=== PATIENT | male | born 1965 | race Caucasian/White ===

== ENCOUNTER → 2017-03-12 | Outpatient (CLI) | payer OTHER ==
[2017-03-12 13:49] LABS: ESTIMATED AVERAGE GLUCOSE 137 mg/dl; HA1C FLAG Normal (Normal)
== END | disposition home or self-care (01) ==
LOC: C.LABBC 10:53
PROVIDERS: ATTEND Nurse Practitioner Family
DX: E11.9 Type 2 diabetes mellitus without complications (principal)

== ENCOUNTER → 2017-06-24 | Outpatient (CLI) | payer OTHER ==
[2017-06-24 11:20] LABS: ESTIMATED AVERAGE GLUCOSE 134 mg/dl; HA1C FLAG Normal (Normal)
[2017-06-24 11:23] LABS: ALB/GLOB RATIO 1.3 (0.9-2); ALKALINE PHOSPHATASE 88 U/L (45-117); ALT/SGPT 42 U/L (12-78); AMYLASE 85 U/L (25-115); AST/SGOT 17 U/L (15-37); BLOOD UREA NITROGEN 18 mg/dl (7-18); BUN/CREATININE RATIO 16.9 (10-20); CALCIUM 8.6 mg/dl (8.5-10.1); CARBON DIOXIDE 30 mmol/L (21-32); CHLORIDE 104 mmol/L (98-107); CREATININE 1.08 mg/dl (0.60-1.40); GLUCOSE 132 mg/dl (70-99); HDL CHOLESTEROL 42 mg/dl; SODIUM 139 mmol/L (136-145)
[2017-06-24 11:25] LABS: CHOLESTEROL 183 mg/dl (0-200); CHOLESTEROL/HDL RATIO 4.4; LDL CHOLESTEROL CALCULATED 108 mg/dl; TRIGLYCERIDES 164 mg/dl (0-150); VERY LOW DENSITY LIPOPROT CALC 33 mg/dl
[2017-06-24 11:35] LABS: RATIO 3.5 mcg/mg (0-30.0)
== END | disposition home or self-care (01) ==
LOC: C.LABBC 08:31
PROVIDERS: ATTEND Nurse Practitioner Family
DX: E11.9 Type 2 diabetes mellitus without complications (principal); M54.5 Low back pain

== ENCOUNTER → 2017-09-24 | Outpatient (CLI) | payer OTHER ==
[2017-09-24 14:07] LABS: HEMOGLOBIN A1C 6.3 % (4.5-5.6)
[2017-09-24 14:17] LABS: LIPASE 170 U/L (73-393)
== END | disposition home or self-care (01) ==
LOC: C.LABBC 10:49
PROVIDERS: ATTEND Nurse Practitioner Family
DX: E11.9 Type 2 diabetes mellitus without complications (principal)

== ENCOUNTER 2021-04-20 00:33 | Inpatient (IN) ==
[2021-04-20] MEDS ORDERED: dexAMETHasone**PF** 10 MG/ML VIAL IV ONE (00:42)
[2021-04-20] MEDS ORDERED: SODIUM CHLORIDE 0.9% 1000ML 1,000 ML IV SCH (00:45)
--- NOTE | 2021-04-20 01:00 | Emergency Department Note ---
History of Present Illness General Chief complaint: Shortness of Breath/Dyspnea Stated complaint: + COVID w/ BREATHING DIFFICULTY Time Seen by Provider: 04/20/21 00:35 History of Present Illness This 55-year-old unvaccinated male who tested positive for Covid presents to the ER complaining of worsening shortness of breath whose sats at home were 88 to 90% Location: Generalized Quality: Hard to breathe Severity: Moderate Duration: Past 2 days Timing: Started few days ago Context: Symptoms got worse and patient came in Modifying factors: better with nothing; worse with activity Patient took a home Covid test the other day and was positive. is currently sick with Covid also. Patient states he feels sick and short of breath. He does not smoke. Home O2 sats were low. Patient was concerned and came in. Home Medications Medication Instructions Recorded Confirmed Type ascorbic acid (vitamin C) 250 mg 250 mg PO DAILY tab 04/14/19 04/20/21 History tablet cholecalciferol (vitamin D3) 50 2,000 units PO DAILY tab 04/14/19 04/20/21 History mcg (2,000 unit) tablet cyanocobalamin (vitamin B-12) 500 500 mcg PO DAILY tab 04/14/19 04/20/21 History mcg tablet multivitamin 1 tab PO DAILY 04/14/19 04/20/21 History omega-3 acid ethyl esters 1 gram 1 cap PO DAILY cap 04/14/19 04/20/21 History capsule blood sugar diagnostic (Kulv Travel AgencyTouch #300 ea 02/17/20 Rx Ultra Blue Test Strip) FreeStyle Zan 14 Day [place] #1 ea NS 04/27/20 09/14/20 Rx (flash glucose scanning reader) FreeStyle Zan 14 Day Sensor #6 ea NS 04/27/20 09/14/20 Rx (flash glucose sensor) insulin degludec 200 unit/mL (3 26 unit SUBCUT DAILY 90 Days #18 ml 05/04/20 04/20/21 Rx mL) subcutaneous pen (Tresiba FlexTouch U-200 insulin) lancets 33 gauge (Kulv Travel AgencyTouch Delica #300 ea 05/04/20 Rx Lancets) metformin 500 mg tablet,extended 1,500 mg PO DAILY #270 tab 02/19/21 04/20/21 Rx release 24 hr pen needle, diabetic 32 gauge x #100 ea 03/15/21 Rx 5/32" (BD Ultra-Fine Gisell Pen Needle) acetaminophen 300 mg-codeine 30 mg 1 tab PO Q6 PRN 04/20/21 04/20/21 History tablet albuterol sulfate 90 mcg/actuation 2 puff INHALATION Q6 04/20/21 04/20/21 History aerosol inhaler fluticasone 100 mcg-salmeterol 50 1 ea INHALATION BID 04/20/21 04/20/21 History mcg/dose blistr powdr for inhalation (Advair Diskus) promethazine 6.25 mg-codeine 10 0 ml PO UD 04/20/21 04/20/21 History mg/5 mL syrup Allergies Allergy/AdvReac Type Severity Reaction Status Date / Time No Known Allergies Allergy Verified 04/20/21 00:58 Past Med/Surg History Medical History (Updated 04/20/21 @ 03:03 by Melody Winston DO) Dyslipidemia Type 2 diabetes mellitus with insulin therapy Surgical History No pertinent past surgical history Family History (Updated 04/20/21 @ 02:52 by Melody Winston DO) Other No significant family history Social History Smoking Status: Never smoker Hx Alcohol Use: No Preferred Language: Wolof Feels Safe at Home: Yes Review of Systems A total of 10 systems reviewed and were otherwise negative Physical Exam Vital Signs Vital Signs - 24 hr 04/20/21 00:45 04/20/21 00:50 04/20/21 01:12 Temperature 38.6 C H Temperature Source Oral Pulse Rate 110 H Pulse Rate [Apical] Pulse Rhythm Regular Pulse Rhythm [Apical] Pulse Strength [Apical] Respiratory Rate 24 Respiratory Effort / Characteristics Non-Labored Respiratory Depth Normal Respiratory Pattern Regular Blood Pressure 152/98 H Blood Pressure [Left Arm] Blood Pressure Mean 116 Blood Pressure Mean [Left Arm] Blood Pressure Position [Left Arm] Pulse Oximetry 89 L 94 Oxygen Delivery Method Room Air Nasal Cannula Nasal Cannula Oxygen Flow Rate 3 Sepsis Recent Fever Within 48 Hours No Sepsis New/Unexplained Change in Mental Status No Sepsis Action Taken by Nursing Physician Notified 04/20/21 01:15 04/20/21 01:16 04/20/21 01:30 Temperature Temperature Source Pulse Rate Pulse Rate [Apical] 108 H Pulse Rhythm Pulse Rhythm [Apical] Regular Pulse Strength [Apical] Normal Respiratory Rate 24 Respiratory Effort / Characteristics Non-Labored Spontaneous Non-Labored Spontaneous Non-Labored Spontaneous Respiratory Depth Normal Respiratory Pattern Blood Pressure Blood Pressure [Left Arm] 161/94 H Blood Pressure Mean Blood Pressure Mean [Left Arm] 116 Blood Pressure Position [Left Arm] Lying Pulse Oximetry 95 95 97 Oxygen Delivery Method Nasal Cannula Nasal Cannula Room Air Oxygen Flow Rate 3 3 Sepsis Recent Fever Within 48 Hours Sepsis New/Unexplained Change in Mental Status Sepsis Action Taken by Nursing 04/20/21 02:00 04/20/21 02:30 04/20/21 02:45 Temperature Temperature Source Pulse Rate Pulse Rate [Apical] 101 H 102 H 101 H Pulse Rhythm Pulse Rhythm [Apical] Regular Regular Pulse Strength [Apical] Normal Normal Respiratory Rate 22 22 22 Respiratory Effort / Characteristics Non-Labored Spontaneous Non-Labored Spontaneous Non-Labored Accessory Muscle Use Respiratory Depth Normal Normal Normal Respiratory Pattern Regular Blood Pressure Blood Pressure [Left Arm] 166/86 H 160/64 H 142/101 H Blood Pressure Mean Blood Pressure Mean [Left Arm] 112 96 114 Blood Pressure Position [Left Arm] Pulse Oximetry 96 95 95 Oxygen Delivery Method Nasal Cannula Nasal Cannula Nasal Cannula Oxygen Flow Rate 3 3 3 Sepsis Recent Fever Within 48 Hours Sepsis New/Unexplained Change in Mental Status Sepsis Action Taken by Nursing 04/20/21 03:11 Temperature Temperature Source Pulse Rate 101 H Pulse Rate [Apical] Pulse Rhythm Pulse Rhythm [Apical] Pulse Strength [Apical] Respiratory Rate 22 Respiratory Effort / Characteristics Respiratory Depth Respiratory Pattern Blood Pressure 161/96 H Blood Pressure [Left Arm] Blood Pressure Mean Blood Pressure Mean [Left Arm] Blood Pressure Position [Left Arm] Pulse Oximetry 95 Oxygen Delivery Method Nasal Cannula Oxygen Flow Rate 3 Sepsis Recent Fever Within 48 Hours Sepsis New/Unexplained Change in Mental Status Sepsis Action Taken by Nursing VITALS: Vitals are noted on the nurse's note and reviewed by myself. Vital signs 88% on room air. GENERAL: White male appears sick working to breathe, SKIN: The skin was without rashes, erythema, edema, or bruising. There is no tenting of the skin. Capillary reflex less than 2 seconds. HEAD: Normocephalic atraumatic. EARS: External auditory canals clear, tympanic membranes pearly lemon without erythema or effusion bilaterally. EYES: Pupils equal round and reactive to light and accommodation. Conjunctivae without injection, sclerae without icterus. Extraocular movements intact. NOSE: Patent, turbinates without inflammation or discharge. No sinus tenderness. MOUTH: Mucous membranes moist. Pharynx without erythema or exudate. Uvula midline. Airway patent. Tongue does not deviate. NECK: Supple without nuchal rigidity. No lymphadenopathy. No thyromegaly. Cervical spine is nontender. No JVD. HEART: Regular rate and rhythm LUNGS: Mild diffuse end expiratory wheezes, without rales or rhonchi. No retractions or accessory muscle use. ABDOMEN: Positive bowel sounds x 4. Normal tympanic percussion. Soft, nontender, without masses or organomegaly. Henry sign negative. No guarding or rebound tenderness. No CVA tenderness MUSCULOSKELETAL: No muscle atrophy, erythema, or edema noted. NEURO: Patient was alert and oriented to person place and time. Normal sensation to light and sharp touch. No focal neurological deficits. Course Administered Medications Discontinued Medications Dexamethasone Sodium Phosphate (DexamethasonePf 10 Mg/Ml Vial) 6 mg IV NOW ONE Stop: 04/20/21 00:43 Last Admin: 04/20/21 01:12 Dose: 6 mg Documented by: [id number] Sodium Chloride (Nss 1000ml) 1,000 mls @ 999 mls/hr IV .[id number] PATRICIA Stop: 04/20/21 01:45 Last Infusion: 04/20/21 02:27 Dose: 0 mls/hr Documented by: [id number] Admin: 04/20/21 01:13 Dose: 999 mls/hr Documented by: [id number] Potassium Chloride (Potassium Chloride Crtab 20 Meq Tabcr) 40 meq PO NOW STA Stop: 04/20/21 02:44 Last Admin: 04/20/21 02:52 Dose: 40 meq Documented by: [id number] Medical Decision Making Medical Records Attestation: I reviewed the patient's medical records. Home Medications Current Medication List: was personally reviewed by me Laboratory Data Attestation: I reviewed the patient's lab results. Result diagrams: 04/20/21 01:10 04/20/21 01:10 Lab Results 04/20/21 04/20/21 04/20/21 Range/Units 01:10 01:10 01:10 WBC 3.09 L (4.8-10.8) K/uL RBC 5.09 (4.7-6.1) M/uL Hgb 14.9 (14.0-18.0) g/dL Hct 42.0 (42-52) % MCV 82.5 (80-100) fL MCH 29.3 (25-34) pg MCHC 35.5 (32-36) g/dL RDW Std Deviation 38.6 (36.4-46.3) fL RDW Coeff of Miracle 12.7 (11.5-14.5) % Plt Count 129 L (130-400) K/uL MPV 9.5 (7.4-10.4) fL Immature Gran % (Auto) 0.3 % Neut % (Auto) 74.2 % Lymph % (Auto) 19.4 % [place] % (Auto) 6.1 % Eos % (Auto) 0.0 % Baso % (Auto) 0.0 % Neut # (Auto) 2.29 (1.4-6.5) K/uL Lymph # (Auto) 0.60 L (1.2-3.4) K/uL [place] # (Auto) 0.19 (0.11-0.59) K/uL Eos # (Auto) 0.00 (0-0.5) K/uL Baso # (Auto) 0.00 (0-0.2) K/uL Immature Gran # (Auto) 0.01 (0.00-0.02) K/uL RBC Morphology Unremarkable PT 10.8 (9.0-12.0) Seconds INR 1.1 (0.9-1.1) APTT 29.2 (21.0-31.0) Seconds PTT Ratio 1.1 Sodium 127 L (136-145) mmol/L Potassium 3.2 L (3.5-5.1) mmol/L Chloride 93 L (98-107) mmol/L Carbon Dioxide 27 (21-32) mmol/L Anion Gap 7.0 (3-11) BUN 11 (7-18) mg/dl Creatinine 0.97 (0.6-1.4) mg/dl Est Cr Clr Drug Dosing 98.6 ml/min Est GFR ( Amer) 102.2 ml/min Est GFR (Non-Af Amer) 88.1 ml/min BUN/Creatinine Ratio 11.2 (10-20) Glucose 145 H (70-99) mg/dl Lactate (0.4-2.0) mmol/L Calcium 7.9 L (8.5-10.1) mg/dl Magnesium 2.0 (1.8-2.4) mg/dl Total Bilirubin 0.9 (0.2-1) mg/dl AST 68 H (15-37) U/L ALT 47 (12-78) U/L Alkaline Phosphatase 63 (45-117) U/L Troponin I < 0.015 (0-0.045) ng/ml C-Reactive Protein 5.51 H (0-0.29) mg/dl NT-Pro-B Natriuret Pep 46 (0-900) pg/ml Total Protein 6.4 (6.4-8.2) gm/dl Albumin 3.3 L (3.4-5.0) gm/dl Globulin 3.1 (2.5-4.0) gm/dl Albumin/Globulin Ratio 1.1 (0.9-2) Procalcitonin (0-0.5) ng/ml Urine Color Urine Appearance (Clear) Urine pH (4.5-7.5) Ur Specific [place] (1.000-1.030) Urine Protein (Negative) Urine Glucose (UA) (Negative) Urine Ketones (Negative) Urine Blood (Negative) Urine Nitrite (Negative) Urine Bilirubin (Negative) Urine Urobilinogen (Negative) Ur Leukocyte Esterase (Negative) Urine WBC (Auto) (0-5) /hpf Urine RBC (Auto) (0-4) /hpf U Hyaline Cast (Auto) (0-5) /lpf U Epithel Cells (Auto) (0-5) /lpf Urine Bacteria (Auto) (Negative) COVID-19 Eval Order SARS-CoV-2 (PCR) (Negative) 04/20/21 04/20/21 04/20/21 Range/Units 01:10 01:10 01:10 WBC (4.8-10.8) K/uL RBC (4.7-6.1) M/uL Hgb (14.0-18.0) g/dL Hct (42-52) % MCV (80-100) fL MCH (25-34) pg MCHC (32-36) g/dL RDW Std Deviation (36.4-46.3) fL RDW Coeff of Miracle (11.5-14.5) % Plt Count (130-400) K/uL MPV (7.4-10.4) fL Immature Gran % (Auto) % Neut % (Auto) % Lymph % (Auto) % [place] % (Auto) % Eos % (Auto) % Baso % (Auto) % Neut # (Auto) (1.4-6.5) K/uL Lymph # (Auto) (1.2-3.4) K/uL [place] # (Auto) (0.11-0.59) K/uL Eos # (Auto) (0-0.5) K/uL Baso # (Auto) (0-0.2) K/uL Immature Gran # (Auto) (0.00-0.02) K/uL RBC Morphology PT (9.0-12.0) Seconds INR (0.9-1.1) APTT (21.0-31.0) Seconds PTT Ratio Sodium (136-145) mmol/L Potassium (3.5-5.1) mmol/L Chloride (98-107) mmol/L Carbon Dioxide (21-32) mmol/L Anion Gap (3-11) BUN (7-18) mg/dl Creatinine (0.6-1.4) mg/dl Est Cr Clr Drug Dosing ml/min Est GFR ( Amer) ml/min Est GFR (Non-Af Amer) ml/min BUN/Creatinine Ratio (10-20) Glucose (70-99) mg/dl Lactate 1.2 (0.4-2.0) mmol/L Calcium (8.5-10.1) mg/dl Magnesium (1.8-2.4) mg/dl Total Bilirubin (0.2-1) mg/dl AST (15-37) U/L ALT (12-78) U/L Alkaline Phosphatase (45-117) U/L Troponin I (0-0.045) ng/ml C-Reactive Protein (0-0.29) mg/dl NT-Pro-B Natriuret Pep (0-900) pg/ml Total Protein (6.4-8.2) gm/dl Albumin (3.4-5.0) gm/dl Globulin (2.5-4.0) gm/dl Albumin/Globulin Ratio (0.9-2) Procalcitonin 0.07 (0-0.5) ng/ml Urine Color Urine Appearance (Clear) Urine pH (4.5-7.5) Ur Specific [place] (1.000-1.030) Urine Protein (Negative) Urine Glucose (UA) (Negative) Urine Ketones (Negative) Urine Blood (Negative) Urine Nitrite (Negative) Urine Bilirubin (Negative) Urine Urobilinogen (Negative) Ur Leukocyte Esterase (Negative) Urine WBC (Auto) (0-5) /hpf Urine RBC (Auto) (0-4) /hpf U Hyaline Cast (Auto) (0-5) /lpf U Epithel Cells (Auto) (0-5) /lpf Urine Bacteria (Auto) (Negative) COVID-19 Eval Order Covid19 at [facility] SARS-CoV-2 (PCR) (Negative) 04/20/21 04/20/21 Range/Units 01:10 02:50 WBC (4.8-10.8) K/uL RBC (4.7-6.1) M/uL Hgb (14.0-18.0) g/dL Hct (42-52) % MCV (80-100) fL MCH (25-34) pg MCHC (32-36) g/dL RDW Std Deviation (36.4-46.3) fL RDW Coeff of Miracle (11.5-14.5) % Plt Count (130-400) K/uL MPV (7.4-10.4) fL Immature Gran % (Auto) % Neut % (Auto) % Lymph % (Auto) % [place] % (Auto) % Eos % (Auto) % Baso % (Auto) % Neut # (Auto) (1.4-6.5) K/uL Lymph # (Auto) (1.2-3.4) K/uL [place] # (Auto) (0.11-0.59) K/uL Eos # (Auto) (0-0.5) K/uL Baso # (Auto) (0-0.2) K/uL Immature Gran # (Auto) (0.00-0.02) K/uL RBC Morphology PT (9.0-12.0) Seconds INR (0.9-1.1) APTT (21.0-31.0) Seconds PTT Ratio Sodium (136-145) mmol/L Potassium (3.5-5.1) mmol/L Chloride (98-107) mmol/L Carbon Dioxide (21-32) mmol/L Anion Gap (3-11) BUN (7-18) mg/dl Creatinine (0.6-1.4) mg/dl Est Cr Clr Drug Dosing ml/min Est GFR ( Amer) ml/min Est GFR (Non-Af Amer) ml/min BUN/Creatinine Ratio (10-20) Glucose (70-99) mg/dl Lactate (0.4-2.0) mmol/L Calcium (8.5-10.1) mg/dl Magnesium (1.8-2.4) mg/dl Total Bilirubin (0.2-1) mg/dl AST (15-37) U/L ALT (12-78) U/L Alkaline Phosphatase (45-117) U/L Troponin I (0-0.045) ng/ml C-Reactive Protein (0-0.29) mg/dl NT-Pro-B Natriuret Pep (0-900) pg/ml Total Protein (6.4-8.2) gm/dl Albumin (3.4-5.0) gm/dl Globulin (2.5-4.0) gm/dl Albumin/Globulin Ratio (0.9-2) Procalcitonin (0-0.5) ng/ml Urine Color Yellow Urine Appearance Clear (Clear) Urine pH 6.5 (4.5-7.5) Ur Specific [place] 1.007 (1.000-1.030) Urine Protein 2+ H (Negative) Urine Glucose (UA) Negative (Negative) Urine Ketones 2+ H (Negative) Urine Blood 2+ H (Negative) Urine Nitrite Negative (Negative) Urine Bilirubin Negative (Negative) Urine Urobilinogen Negative (Negative) Ur Leukocyte Esterase Negative (Negative) Urine WBC (Auto) 1-5 (0-5) /hpf Urine RBC (Auto) 0-4 (0-4) /hpf U Hyaline Cast (Auto) 1-5 (0-5) /lpf U Epithel Cells (Auto) 20-30 H (0-5) /lpf Urine Bacteria (Auto) Negative (Negative) COVID-19 Eval Order SARS-CoV-2 (PCR) POSITIVE A* (Negative) Imaging Data Attestation: I personally reviewed and interpreted this imaging study as follows: MDM Narrative Prior records/ancillary studies reviewed. Triage Nursing notes reviewed. Additional history obtained from EMS The patient's history was concerning for respiratory difficulties. Differential diagnosis: Etiologies such as infections, reactive airway disease, pneumonia, pneumothorax, COPD, CHF, cardiac ischemia, pulmonary embolism, musculoskeletal, gastrointestinal, as well as others were entertained. Physical examination: As above. ER treatment provided: An order was placed for continuous cardiac monitoring. The monitor shows a rate of 50-1 50 with a sinus rhythm. IV fluids, Decadron On reassessment the patient felt better. Diagnostic interpretation by me: The electrocardiogram was negative for acute ischemic or pathologic change. Order for dyspnea EKG: Normal sinus, normal intervals, no acute ST-T wave changes. Impression sinus tachycardia interpreted by myself I think arrhythmia is unlikely. EKG shows normal sinus rhythm with no interval abnormalities such as QT prolongation or WPW. There are no findings to suggest Brugada syndrome. Cardiac monitoring in the emergency department reveals no tachycardic or bradycardic dysrhythmia. Hypertrophic cardiomyopathy was considered but there are no clear historical elements pointing toward this. EKG is not suggestive. The QRS voltage is not extremely large and there are no suggestive Q waves. The labs revealed positive Covid, ABG reviewed Imaging studies: Chest x-ray multifocal pneumonia with a positive Covid per my interpretation. Consultation: A consultation was placed with the hospitalist. The case was discussed and diagnostics were reviewed. The patient was evaluated in the ER for further treatment. This appears to be consistent with COVID-19 who is hypoxic. Room air was 88%. Patient proved on nasal cannula. He was given Decadron. Medicine is consulted. He will be admitted. By the evaluation outlined above emergent etiologies such as CHF, cardiac ischemia, pulmonary embolism, reactive airway disease, pneumothorax, musculoskeletal, as well as others were deemed relatively unlikely. The pt informed about the findings as listed above. All questions were answered and pleased with the treatment. The chart was completed utilizing [employer] voice recognition software. Grammatical errors, random word insertions, pronoun errors, and incomplete sentences are an occassional consequence of this system due to software limitations, ambient noise, and hardware issues. Any formal questions or concerns about the content, text, or information contained within the body of this dictation should be directly addressed to the physician mobile unit assistant for clarification. Impression & Plan COVID-19, Hypoxemia Discharge Plan Visit Data Chief Complaint: Shortness of Breath/Dyspnea Stated Complaint: + COVID w/ BREATHING DIFFICULTY ED Provider: [facility] ED Midlevel Provider: Abigail Bain Discharge Problem: COVID-19, Hypoxemia Patient Disposition: Admitted As Inpatient Condition: Fair Discharge Instructions Interventions: ED Discharge Assessment Last Done: 04/20/21 03:11 Forms Stand Alone Forms: [employer] [facility] [employer] Prescriptions Prescriptions: No Action (DME) OneTouch Ultra Blue Test Strip Strip See Dose Instructions .ROUTE .MEDSUPPLY Qty: 300 RF: 3 (DME) FreeStyle Zan 14 Day [place] Misc See Rx Instructions .ROUTE .MEDSUPPLY Qty: 1 RF: 0 (DME) FreeStyle Zan 14 Day Sensor Kit See Rx Instructions .ROUTE .MEDSUPPLY Qty: 6 RF: 3 (DME) lancets [OneTouch Delica Lancets] 33 gauge misc See Dose Instructions .ROUTE .MEDSUPPLY Qty: 300 RF: 3 Tresiba FlexTouch U-200 200 unit/mL (3 mL) insulin pen 26 unit subcut DAILY 90 Days Qty: 18 RF: 3 metformin 500 mg tablet extended release 24 hr 1,500 mg PO DAILY Qty: 270 RF: 3 (DME) pen needle, diabetic [BD Ultra-Fine Gisell Pen Needle] 32 gauge x 5/32" needle See Dose Instructions .ROUTE .MEDSUPPLY Qty: 100 RF: 3 omega-3 acid ethyl esters 1 gram capsule 1 cap PO DAILY RF: 0 multivitamin tablet 1 tab PO DAILY RF: 0 cyanocobalamin (vitamin B-12) 500 mcg tablet 500 mcg PO DAILY RF: 0 ascorbic acid (vitamin C) 250 mg tablet 250 mg PO DAILY RF: 0 cholecalciferol (vitamin D3) 2,000 unit tablet 2,000 units PO DAILY RF: 0 promethazine-codeine 6.25-10 mg/5 mL syrup 0 ml PO UD RF: 0 fluticasone propion-salmeterol [Advair Diskus] 100-50 mcg/dose blister with device 1 ea INHALATION BID RF: 0 acetaminophen-codeine 300-30 mg tablet 1 tab PO Q6 PRN (Reason: Cough) RF: 0 albuterol sulfate 90 mcg/actuation HFA aerosol inhaler 2 puff INHALATION Q6 RF: 0 Referrals Referrals: Anyi Quevedo CRNP [Primary Care Provider] -
[2021-04-20 01:22] LABS: Hemoglobin 14.9 g/dL (14.0-18.0); Immature Granulocytes # (auto) 0.01 K/uL (0.00-0.02); Immature Granulocytes % (auto) 0.3 %; Lymphocytes % (auto) 19.4 %; Mean Corpuscular Hemoglobin 29.3 pg (25-34); Mean Corpuscular Hgb Conc 35.5 g/dL (32-36); Mean Corpuscular Volume 82.5 fL (80-100); Mean Platelet Volume 9.5 fL (7.4-10.4); Monocytes # (auto) 0.19 K/uL (0.11-0.59); Monocytes % (auto) 6.1 %; Neutrophils # (auto) 2.29 K/uL (1.4-6.5); Neutrophils % (auto) 74.2 %; Platelet Count 129 K/uL (130-400); RDW Coefficient of Variation 12.7 % (11.5-14.5); RDW Standard Deviation 38.6 fL (36.4-46.3); Red Blood Count 5.09 M/uL (4.7-6.1); White Blood Count 3.09 K/uL (4.8-10.8)
[2021-04-20 01:33] LABS: INR 1.1 (0.9-1.1); Partial Thromboplastin Ratio 1.1; Partial Thromboplastin Time 29.2 Seconds (21.0-31.0); Prothrombin Time 10.8 Seconds (9.0-12.0)
[2021-04-20 01:39] LABS: Alanine Aminotransferase 47 U/L (12-78); Albumin Level 3.3 gm/dl (3.4-5.0); Aspartate Aminotransferase 68 U/L (15-37); BUN Creatinine Ratio 11.2 (10-20); Blood Urea Nitrogen 11 mg/dl (7-18); Calcium 7.9 mg/dl (8.5-10.1); Carbon Dioxide 27 mmol/L (21-32); Chloride 93 mmol/L (98-107); Creatinine Clr Calc Pharmacy 98.6 ml/min; Est GFR (African American) 102.2 ml/min; Est GFR (Non-African American) 88.1 ml/min; Glucose 145 mg/dl (70-99); Potassium 3.2 mmol/L (3.5-5.1); Sodium 127 mmol/L (136-145)
[2021-04-20 01:44] LABS: Albumin Globulin Ratio 1.1 (0.9-2); Alkaline Phosphatase 63 U/L (45-117); Bilirubin,Total 0.9 mg/dl (0.2-1); C Reactive Protein 5.51 mg/dl (0-0.29); Globulin 3.1 gm/dl (2.5-4.0); NT Pro B Type Natriuretic Pept 46 pg/ml (0-900); Total Protein 6.4 gm/dl (6.4-8.2); Troponin I < 0.015 ng/ml (0-0.045)
[2021-04-20 02:09] LABS: RBC Morphology Unremarkable
[2021-04-20] MEDS ORDERED: POTASSIUM CHLORIDE CRTAB 20 MEQ TABCR PO STA (02:43)
--- NOTE | 2021-04-20 03:07 | History & Physical Report ---
Date of Service April 20, 2021 Assessment & Plan (1) COVID-19: Plan: 55yo C male with history of DM, obesity with BMI of 28.7 presenting with Covid- 19 infection, hypoxia and worsening shortness of breath. Patient is on day 11 of illness. He has been using Albuterol and Advair at home. He received a MAB infusion outpatient. He is unvaccinated. Hypoxic to 89% on arrival. Labs with leukopenia and lymphopenia, thrombocytopenia, hyponatremia, hypokalemia as well as mildly elevated AST and CRP of 5.51. BNP and procalcitonin within normal range -Admit to medical with telemetry -Maintain Covid-19 isolation precautions -Monitor SpO2, supplemental O2 as needed to maintain saturation of >92% -Prone while awake as tolerated -Dexamethasone 6mg IV daily -Albuterol, Tylenol, Robitussin, Tessalon for symptomatic management -Lovenox 40 BID (2) Type 2 diabetes mellitus with insulin therapy: Plan: Well controlled. Last Hgb A1C = 6.5 on 01/02/21. Patient on Metformin and Insulin Degludec as outpatient. Blood sugar = 145 currently. He follows with Endocrinology - last seen in September 2020. -Hold Metformin -Lantus 10u BID -ISS -Goal blood sugar 100 - 140 -CC diet as tolerated (3) Dyslipidemia: Plan: Chronic -Not on statin currently -Will hold fish oil (4) Vitamin D deficiency: Plan: Chronic -Continue Vitamin D supplementation (5) Hyponatremia: Plan: [id number]=667. Patient appears euvolemic on exam. Most likely secondary to underlying Covid-19 infection with systemic inflammation -Check urine and serum osm -Check urine Na -Monitor Na, repeat chemistry in AM Plan: F/E/N - [place]. Na monitoring as above. K repletion with 40mEq x 1 dose, repeat chemistry in AM, CC diet as tolerated Ppx - Lovenox 40mg BID with active Covid-19 infection, increased risk for thrombosis Code - Full per discussion with patient, at bedside Dispo - Admit to medical with telemetry History of Present Illness Chief Complaint: Covid-19 pneumonia Primary Care Provider: CARISA Mesa Chris Bustillo is a 55yo male with history of DM presenting with Covid-19 PNA. Patient developed symptoms 11 days ago - fevers/chills/body aches/loss of taste and smell. He had a home test that was positive. He was evaluated by his PCP and given Albuterol HFA, Advair as well as cough syrup. Patient has been monitoring his oxygen saturation at home and it has been appx 88-94%. Today, however, he was in mid-80's. He also felt more short of breath like his "lungs seized up". Also with persistent coughing, poor sleep. Additionally he is complaining of severe fatigue and malaise as well as some lower abdominal discomfort associated only with coughing. Patient denies chest pain, palpitations, generalized abdominal pain, nausea, vomiting, diarrhea or constipation. No additional complaints at this time. Upon arrival to the ER patient febrile, tachycardic, saturating 89% on room air. He was placed on 3L by nasal cannula with improvement in saturation to 95%. ABG performed on 2L NC 7.45/36.7/89 Allergies Allergy/AdvReac Type Severity Reaction Status Date / Time No Known Allergies Allergy Verified 04/20/21 00:58 Home Medications Medication Instructions Recorded Confirmed Type ascorbic acid (vitamin C) 250 mg 250 mg PO DAILY tab 04/14/19 04/20/21 History tablet cholecalciferol (vitamin D3) 50 2,000 units PO DAILY tab 04/14/19 04/20/21 History mcg (2,000 unit) tablet cyanocobalamin (vitamin B-12) 500 500 mcg PO DAILY tab 04/14/19 04/20/21 History mcg tablet multivitamin 1 tab PO DAILY 04/14/19 04/20/21 History omega-3 acid ethyl esters 1 gram 1 cap PO DAILY cap 04/14/19 04/20/21 History capsule blood sugar diagnostic (OneTouch #300 ea 02/17/20 Rx Ultra Blue Test Strip) FreeStyle Zan 14 Day [place] #1 ea NS 04/27/20 09/14/20 Rx (flash glucose scanning reader) FreeStyle Zan 14 Day Sensor #6 ea NS 04/27/20 09/14/20 Rx (flash glucose sensor) insulin degludec 200 unit/mL (3 26 unit SUBCUT DAILY 90 Days #18 ml 05/04/20 04/20/21 Rx mL) subcutaneous pen (Tresiba FlexTouch U-200 insulin) lancets 33 gauge (OneTouch Delica #300 ea 05/04/20 Rx Lancets) metformin 500 mg tablet,extended 1,500 mg PO DAILY #270 tab 02/19/21 04/20/21 Rx release 24 hr pen needle, diabetic 32 gauge x #100 ea 03/15/21 Rx 5/32" (BD Ultra-Fine Gisell Pen Needle) acetaminophen 300 mg-codeine 30 mg 1 tab PO Q6 PRN 04/20/21 04/20/21 History tablet albuterol sulfate 90 mcg/actuation 2 puff INHALATION Q6 04/20/21 04/20/21 History aerosol inhaler fluticasone 100 mcg-salmeterol 50 1 ea INHALATION BID 04/20/21 04/20/21 History mcg/dose blistr powdr for inhalation (Advair Diskus) promethazine 6.25 mg-codeine 10 0 ml PO UD 04/20/21 04/20/21 History mg/5 mL syrup Past Med/Surg History Medical History (Updated 04/20/21 @ 03:03 by Melody Winston DO) Dyslipidemia Type 2 diabetes mellitus with insulin therapy Surgical History No pertinent past surgical history Family History (Updated 04/20/21 @ 02:52 by Melody Winston DO) Other No significant family history Social History Smoking Status: Never smoker Hx Alcohol Use: No Preferred Language: Nepali Feels Safe at Home: Yes Review of Systems Review of Systems: All systems reviewed & are unremarkable except as noted in HPI & below Physical Exam Physical Exam: General: patient ill in appearance, NAD, AA&O x 4 Skin: warm, dry, intact, no rashes or lesions HEENT: NC/AT, PERRL, EOMI, anicteric sclera, conjunctiva without injection, external ear normal to inspection and nontender, nares patent, moist mucus membranes, dentition intact, no oropharyngeal lesions, neck supple, trachea midline, no LAD, no thyromegaly, no JVD Heart: +S1/S2, regular, no m/r/g Lungs: equal air entry bilaterally, +fine rales bilaterally, no wheeze Abd: +BS, soft, NT/ND, no masses/organomegaly/ascites Ext: warm, 2+ pulses in UE/LE bilaterally, no clubbing/cyanosis or edema Neuro: nonfocal, patient AA&O x 4, speech intact, no facial droop, moving all extremities on command with equal strength 5/5 Results & Data Results & Data ([facility]) Vital Signs (Past 12 Hours) Vital Signs Temp Pulse Pulse Resp BP BP Pulse Ox 04/20/21 02:30 102 H 22 160/64 H 95 04/20/21 02:00 101 H 22 166/86 H 96 04/20/21 01:30 97 04/20/21 01:16 95 04/20/21 01:15 108 H 24 161/94 H 95 04/20/21 01:12 38.6 C H 04/20/21 00:50 94 04/20/21 00:45 110 H 24 152/98 H 89 L Laboratory Results Laboratory Results WBC 3.09 K/uL (4.8-10.8) L 04/20/21 01:10 RBC 5.09 M/uL (4.7-6.1) 04/20/21 01:10 Hgb 14.9 g/dL (14.0-18.0) 04/20/21 01:10 Hct 42.0 % (42-52) 04/20/21 01:10 MCV 82.5 fL (80-100) 04/20/21 01:10 MCH 29.3 pg (25-34) 04/20/21 01:10 MCHC 35.5 g/dL (32-36) 04/20/21 01:10 RDW Std Deviation 38.6 fL (36.4-46.3) 04/20/21 01:10 RDW Coeff of Miracle 12.7 % (11.5-14.5) 04/20/21 01:10 Plt Count 129 K/uL (130-400) L 04/20/21 01:10 MPV 9.5 fL (7.4-10.4) 04/20/21 01:10 Immature Gran % (Auto) 0.3 % 04/20/21 01:10 Neut % (Auto) 74.2 % 04/20/21 01:10 Lymph % (Auto) 19.4 % 04/20/21 01:10 [place] % (Auto) 6.1 % 04/20/21 01:10 Eos % (Auto) 0.0 % 04/20/21 01:10 Baso % (Auto) 0.0 % 04/20/21 01:10 Neut # (Auto) 2.29 K/uL (1.4-6.5) 04/20/21 01:10 Lymph # (Auto) 0.60 K/uL (1.2-3.4) L 04/20/21 01:10 [place] # (Auto) 0.19 K/uL (0.11-0.59) 04/20/21 01:10 Eos # (Auto) 0.00 K/uL (0-0.5) 04/20/21 01:10 Baso # (Auto) 0.00 K/uL (0-0.2) 04/20/21 01:10 Immature Gran # (Auto) 0.01 K/uL (0.00-0.02) 04/20/21 01:10 RBC Morphology Unremarkable 04/20/21 01:10 PT 10.8 Seconds (9.0-12.0) 04/20/21 01:10 INR 1.1 (0.9-1.1) 04/20/21 01:10 APTT 29.2 Seconds (21.0-31.0) 04/20/21 01:10 PTT Ratio 1.1 04/20/21 01:10 Sodium 127 mmol/L (136-145) L 04/20/21 01:10 Potassium 3.2 mmol/L (3.5-5.1) L 04/20/21 01:10 Chloride 93 mmol/L (98-107) L 04/20/21 01:10 Carbon Dioxide 27 mmol/L (21-32) 04/20/21 01:10 Anion Gap 7.0 (3-11) 04/20/21 01:10 BUN 11 mg/dl (7-18) 04/20/21 01:10 Creatinine 0.97 mg/dl (0.6-1.4) 04/20/21 01:10 Est Cr Clr Drug Dosing 98.6 ml/min 04/20/21 01:10 Est GFR ( Amer) 102.2 ml/min 04/20/21 01:10 Est GFR (Non-Af Amer) 88.1 ml/min 04/20/21 01:10 BUN/Creatinine Ratio 11.2 (10-20) 04/20/21 01:10 Glucose 145 mg/dl (70-99) H 04/20/21 01:10 Lactate 1.2 mmol/L (0.4-2.0) 04/20/21 01:10 Calcium 7.9 mg/dl (8.5-10.1) L 04/20/21 01:10 Magnesium 2.0 mg/dl (1.8-2.4) 04/20/21 01:10 Total Bilirubin 0.9 mg/dl (0.2-1) 04/20/21 01:10 AST 68 U/L (15-37) H 04/20/21 01:10 ALT 47 U/L (12-78) 04/20/21 01:10 Alkaline Phosphatase 63 U/L (45-117) 04/20/21 01:10 Troponin I < 0.015 ng/ml (0-0.045) 04/20/21 01:10 C-Reactive Protein 5.51 mg/dl (0-0.29) H 04/20/21 01:10 NT-Pro-B Natriuret Pep 46 pg/ml (0-900) 04/20/21 01:10 Total Protein 6.4 gm/dl (6.4-8.2) 04/20/21 01:10 Albumin 3.3 gm/dl (3.4-5.0) L 04/20/21 01:10 Globulin 3.1 gm/dl (2.5-4.0) 04/20/21 01:10 Albumin/Globulin Ratio 1.1 (0.9-2) 04/20/21 01:10 Procalcitonin 0.07 ng/ml (0-0.5) 04/20/21 01:10 COVID-19 Eval Order Covid19 at [facility] 04/20/21 01:10 SARS-CoV-2 (PCR) POSITIVE (Negative) A* 04/20/21 01:10 Diagnostic Findings CXR by my interpretation - poor inspiratory film, low lung volumes, diffuse bilateral airspace opacities, no effusion or PTX ECG Additional Comments: EKG by my interpretation - ST at 109, normal axis, CZ=236, QRS=78, YJn=346, no acute ischemic changes Code Status & VTE Plan VTE Prophylaxis Plan VTE Prophylaxis will be ordered: Yes PG Care Time/CCT Total # of Minutes Spent Total Time Spent with Patient: Total time spent is greater than 50% in coordination of care (as documented) at patient's floor/unit and/or counseling patient: Coding Level of Care Code 18173 Initial Inpt Care Lvl 3 Diagnoses COVID-19 U07.1 Type 2 diabetes mellitus with insulin therapy E11.9; Z79.4 Dyslipidemia E78.5 Vitamin D deficiency E55.9 Hyponatremia E87.1
[2021-04-20 03:11] LABS: Appearance Urine Clear (Clear); Bacteria Urine Automated Negative (Negative); Bilirubin Urine Negative (Negative); Blood Urine 2+ (Negative); Color Urine Yellow; Epithelial Cell Urine Auto 20-30 /lpf (0-5); Glucose Urine UA Negative (Negative); Ketones Urine 2+ (Negative); Leukocyte Esterase Urine Negative (Negative); Nitrite Urine Negative (Negative); Protein Urine 2+ (Negative); RBC Urine Automated 0-4 /hpf (0-4); Specific Gravity Urine 1.007 (1.000-1.030); Urobilinogen Urine Negative (Negative); pH Urine 6.5 (4.5-7.5)
[2021-04-20] MEDS ORDERED: DEXTROSE 50% 50 ML SYRINGE IV PRN (03:57)
[2021-04-20] MEDS ORDERED: GLUCAGON FOR INJ 1 MG VIAL SQ PRN (03:57)
[2021-04-20] MEDS ORDERED: GLUCOSE 40% GEL 15 GM TUBE PO PRN (03:57)
[2021-04-20] MEDS ORDERED: GLUCOSE 10 TABS/TUBE PO PRN (03:57)
[2021-04-20] MEDS ORDERED: CARBOHYDRATES FOR HYPOGLYCEMIA PO PRN (03:57)
[2021-04-20] MEDS ORDERED: ONDANSETRON INJ 2 MG/ML 2 ML VIAL IV PRN (03:57)
[2021-04-20] MEDS ORDERED: ACETAMINOPHEN 325 MG TAB PO PRN (03:57)
[2021-04-20] MEDS ORDERED: ALBUTEROL HFA 8 GM INHALER INH PRN (03:57)
[2021-04-20] MEDS ORDERED: ACETAMINOPHEN 325 MG TAB ONE (04:03)
[2021-04-20 05:12] LABS: Phosphorus 2.5 mg/dl (2.5-4.9)
[2021-04-20] MEDS: ENOXAPARIN INJ 40 MG/0.4 ML SYR SQ SCH ×2 (06:42→17:22)
[2021-04-20] MEDS: CHOLECALCIFEROL 1,000 UNITS 25 MCG TAB PO SCH (08:41)
[2021-04-20] MEDS: BENZONATATE 100 MG CAPSULE PO SCH ×3 (08:41→21:13)
[2021-04-20] MEDS: dexAMETHasone 6 MG in SYRINGE 0 ML IV SCH (08:44)
--- NOTE | 2021-04-20 08:59 | XRay Report ---
XR chest 1V portable HISTORY: SEPSIS COMPARISON: None. FINDINGS: No pneumothorax. No pleural effusions. The heart is normal in size. There are low lung volu mes. There are multifocal patchy airspace opacities consistent with a viral pneumonia. No evidence fo r pulmonary edema. IMPRESSION: Multifocal patchy airspace opacities consistent with a viral pneumonia. ACT 112: Negative or not required by law. Electronically signed by: Nash Barreto M.D. 04/20/2021 8:58 AM
[2021-04-20] MEDS: INSULIN ASPART 100 UNITS/ML 3 ML PEN SC SCH ×4 (09:00→21:13)
[2021-04-20] MEDS ORDERED: INSULIN GLARGINE SOLOSTAR 100 UNITS/ML 3 ML PEN SC SCH (09:00)
[2021-04-20 11:32] LABS: BUN Creatinine Ratio 12.5 (10-20); Calcium 8.1 mg/dl (8.5-10.1); Creatinine Clr Calc Pharmacy 92.3 ml/min; Est GFR (African American) 92.8 ml/min; Est GFR (Non-African American) 80.1 ml/min; Magnesium 2.5 mg/dl (1.8-2.4); Potassium 4.2 mmol/L (3.5-5.1)
--- NOTE | 2021-04-20 12:26 | Electrocardiogram Report ---
Test Reason : Blood Pressure : / mmHG Vent. Rate : 109 BPM Atrial Rate : 109 BPM P-R Int : 154 ms QRS Dur : 078 ms QT Int : 346 ms P-R-T Axes : 010 -16 010 degrees QTc Int : 465 ms Sinus tachycardia Otherwise normal ECG No previous ECGs available Confirmed by Shorty Harry ([id number]) on 04/20/2021 12:25:44 PM Referred By: REFERRED SELF Confirmed By:Shorty Harry
[2021-04-20] MEDS ORDERED: INSULIN GLARGINE SOLOSTAR 100 UNITS/ML 3 ML PEN SC ONE (12:35)
[2021-04-20] MEDS: guaiFENesin SUGAR FREE 100 MG/5 ML UDC PO PRN (17:29)
--- NOTE | 2021-04-20 20:17 | History & Physical Bridge Note ---
Date of Service April 20, 2021 History & Physical Bridge Note I have examined the patient, reviewed the History & Physical and in the interval since the performance of the History & Physical I have noted the following changes of clinical significance: Patient seen and examined-he is feeling much improved after IV fluid hydration and starting on Decadron. He is currently on 1 L of oxygen and his pulse ox was 94% when I saw him. He denies chest pain or shortness of breath, no abdominal pain. Vitals reviewed Gen: AAOx3, NAD HEENT: Anicteric sclerae, EOMI CV: RRR no mgr nl S1S2 Pulm: CTAB no wcr Abd: +BS soft NT ND no masses or hernias Ext: No edema, 2+ DP pulses Skin: No rashes, warm/dry Neuro: Full strength throughout With hyperglycemia secondary to corticosteroids 55-year-old male here with COVID-19 pneumonia and acute respiratory failure with hypoxia as well as hyponatremia and dehydration He is improved with his p.o. intake, no further IV fluids needed Sodium is almost back to normal-follow BMP in the morning Continue Decadron and supplemental O2 and wean off as tolerated May need a two-step walk test in the morning Increase Lantus 15 units twice daily and tighten down NovoLog sliding scale for hyperglycemia We will likely be able to discharge tomorrow to home Discussed his care at length with his on the phone
[2021-04-20] MEDS: INSULIN GLARGINE SOLOSTAR 100 UNITS/ML 3 ML PEN SC SCH (21:12)
[2021-04-21] MEDS: ENOXAPARIN INJ 40 MG/0.4 ML SYR SQ SCH ×2 (05:42→17:23)
[2021-04-21] MEDS: guaiFENesin SUGAR FREE 100 MG/5 ML UDC PO PRN (05:58)
[2021-04-21] MEDS: CHOLECALCIFEROL 1,000 UNITS 25 MCG TAB PO SCH (08:18)
[2021-04-21] MEDS: dexAMETHasone 6 MG in SYRINGE 0 ML IV SCH (08:18)
[2021-04-21] MEDS: BENZONATATE 100 MG CAPSULE PO SCH ×3 (08:18→20:18)
[2021-04-21 08:40] LABS: Hematocrit (blood only) 43.3 % (42-52); Mean Corpuscular Hemoglobin 29.1 pg (25-34); Mean Corpuscular Hgb Conc 34.6 g/dL (32-36); Mean Corpuscular Volume 84.1 fL (80-100); Mean Platelet Volume 9.8 fL (7.4-10.4); Platelet Count 206 K/uL (130-400); RDW Coefficient of Variation 13.1 % (11.5-14.5); RDW Standard Deviation 40.4 fL (36.4-46.3); Red Blood Count 5.15 M/uL (4.7-6.1); White Blood Count 4.71 K/uL (4.8-10.8)
[2021-04-21] MEDS: INSULIN GLARGINE SOLOSTAR 100 UNITS/ML 3 ML PEN SC SCH ×2 (08:51→21:22)
[2021-04-21] MEDS: INSULIN ASPART 100 UNITS/ML 3 ML PEN SC SCH ×4 (08:52→21:21)
[2021-04-21 09:03] LABS: BUN Creatinine Ratio 16.3 (10-20); Calcium 8.4 mg/dl (8.5-10.1); Est GFR (African American) 96.1 ml/min; Est GFR (Non-African American) 82.9 ml/min; Potassium 3.9 mmol/L (3.5-5.1)
[2021-04-21 09:05] LABS: Immature Granulocytes # (auto) 0.02 K/uL (0.00-0.02); Immature Granulocytes % (auto) 0.4 %; Lymphocytes # (auto) 0.49 K/uL (1.2-3.4); Lymphocytes % (auto) 10.4 %; Monocytes # (auto) 0.41 K/uL (0.11-0.59); Monocytes % (auto) 8.7 %; Neutrophils # (auto) 3.79 K/uL (1.4-6.5); Neutrophils % (auto) 80.5 %
--- NOTE | 2021-04-21 10:44 | Hospitalist Progress Note ---
Date of Service April 21, 2021 Assessment & Plan (1) COVID-19: Plan: 55yo C male with history of DM, obesity with BMI of 28.7 presenting with Covid- 19 infection, acute respiratory failure with hypoxia, as well as hyponatremia and dehydration. Patient is on day 11 of illness at time of admission. He has been using Albuterol and Advair at home. He received a MAB infusion outpatient at [facility] on 04/18. He is unvaccinated. Hypoxic to 89% on arrival. Labs with leukopenia and lymphopenia, thrombocytopenia, hyponatremia, hypokalemia as well as mildly elevated AST and CRP of 5.51. BNP and procalcitonin within normal range With slightly worse hypoxia today--> up to 2LNC and with significant THAYER -add on Robitussin DM prn for cough to encourage prone positioning (was having coughing with proning), continue Tessalon perles -Maintain Covid-19 isolation precautions -Monitor SpO2, supplemental O2 as needed to maintain saturation of >92%-now on 2LNC -continue Dexamethasone 6mg IV daily -make Albuterol HFA scheduled as he never received a dose and having bronchospasm -asked RN to bring in IS and will add on flutter valve -Lovenox 40 BID for DVT proph (2) Type 2 diabetes mellitus with insulin therapy: Plan: Well controlled as outpt. Last Hgb A1C = 6.5 on 01/02/21. Patient on Metformin and Insulin Degludec as outpatient. He follows with Endocrinology - last seen in September 2020. With hyperglycemia on admission from steroids, now improved with increased doses of insulin -Hold Metformin -continue higher dose of Lantus 15u BID and Novolog (3) Dyslipidemia: Plan: Chronic -Not on statin currently -Will hold fish oil (4) Vitamin D deficiency: Plan: Chronic -Continue Vitamin D supplementation (5) Hyponatremia: Plan: [id number]=897 on admission. Was dehydrated and having GI issues, poor po intake prior to arrival Now improved after 1 L nS on admission and po intake improving Na+ now 135 Plan: Ppx - Lovenox 40mg BID with active Covid-19 infection, increased risk for thrombosis Code - Full Dispo - continued stay on medical with telemetry Admission and Anticipated Discharge Date Admission Date: April 20, 2021 Subjective Feeling worse today. Requiring more O2 and felt very dyspneic with walking to the bathroom to try to have a BM. Is eating and drinking, makin gurine. Is having a lot of coughing, feels tessalon perles help a bit. Cough is preventing him from proning fo rvery long. Tele NSR Review of Systems Review of Systems: All systems reviewed & are unremarkable except as noted in HPI & below Physical Exam Constitutional: WD/WN, vitals as above Eyes: + anicteric sclerae Neck: trachea midline, no thyromegaly Respiratory: + abnormal respiratory effort (not taking deep breaths) and no respiratory distress Auscultation: lungs clear to auscultation bilaterally and + diminished lung sounds (at bases) Cardiovascular: RRR, no murmur, no edema Chest (Breasts): Chest: normal inspection of chest Gastrointestinal (Abdomen): normal bowel sounds, soft, nontender, no hepatosplenomegaly Musculoskeletal: Extremities: extremities normal to inspection; no cyanosis and no clubbing Skin: no rashes, warm and dry Neurologic: moves all extremities and awake; no focal motor deficits Psychiatric: A+Ox3, euthymic affect Lymphatic: no lymphedema Results & Data Results & Data ([facility]) Vital Signs (Past 12 Hours) Vital Signs Temp Pulse Pulse Resp BP Pulse Ox 04/21/21 07:41 37.0 C 80 19 130/74 92 04/21/21 03:51 37.1 C 80 26 H 118/75 92 04/20/21 23:59 37.1 C 82 80 18 127/84 91 Laboratory Results 04/21/21 04/21/21 04/21/21 Range/Units 08:03 08:03 07:42 WBC 4.71 L (4.8-10.8) K/uL RBC 5.15 (4.7-6.1) M/uL Hgb 15.0 (14.0-18.0) g/dL Hct 43.3 (42-52) % MCV 84.1 (80-100) fL MCH 29.1 (25-34) pg MCHC 34.6 (32-36) g/dL RDW Std Deviation 40.4 (36.4-46.3) fL RDW Coeff of Miracle 13.1 (11.5-14.5) % Plt Count 206 D (130-400) K/uL MPV 9.8 (7.4-10.4) fL Immature Gran % (Auto) 0.4 % Neut % (Auto) 80.5 % Lymph % (Auto) 10.4 % [place] % (Auto) 8.7 % Eos % (Auto) 0.0 % Baso % (Auto) 0.0 % Neut # (Auto) 3.79 (1.4-6.5) K/uL Lymph # (Auto) 0.49 L (1.2-3.4) K/uL [place] # (Auto) 0.41 (0.11-0.59) K/uL Eos # (Auto) 0.00 (0-0.5) K/uL Baso # (Auto) 0.00 (0-0.2) K/uL Immature Gran # (Auto) 0.02 (0.00-0.02) K/uL Sodium 135 L (136-145) mmol/L Potassium 3.9 (3.5-5.1) mmol/L Chloride 102 (98-107) mmol/L Carbon Dioxide 28 (21-32) mmol/L Anion Gap 5.0 (3-11) BUN 17 (7-18) mg/dl Creatinine 1.02 (0.6-1.4) mg/dl Est Cr Clr Drug Dosing 95.0 ml/min Est GFR ( Amer) 96.1 ml/min Est GFR (Non-Af Amer) 82.9 ml/min BUN/Creatinine Ratio 16.3 (10-20) Glucose 149 H (70-99) mg/dl POC Glucose 155 H (70-99) mg/dl Calcium 8.4 L (8.5-10.1) mg/dl Magnesium (1.8-2.4) mg/dl 04/20/21 04/20/21 04/20/21 Range/Units 20:46 16:38 11:31 WBC (4.8-10.8) K/uL RBC (4.7-6.1) M/uL Hgb (14.0-18.0) g/dL Hct (42-52) % MCV (80-100) fL MCH (25-34) pg MCHC (32-36) g/dL RDW Std Deviation (36.4-46.3) fL RDW Coeff of Miracle (11.5-14.5) % Plt Count (130-400) K/uL MPV (7.4-10.4) fL Immature Gran % (Auto) % Neut % (Auto) % Lymph % (Auto) % [place] % (Auto) % Eos % (Auto) % Baso % (Auto) % Neut # (Auto) (1.4-6.5) K/uL Lymph # (Auto) (1.2-3.4) K/uL [place] # (Auto) (0.11-0.59) K/uL Eos # (Auto) (0-0.5) K/uL Baso # (Auto) (0-0.2) K/uL Immature Gran # (Auto) (0.00-0.02) K/uL Sodium (136-145) mmol/L Potassium (3.5-5.1) mmol/L Chloride (98-107) mmol/L Carbon Dioxide (21-32) mmol/L Anion Gap (3-11) BUN (7-18) mg/dl Creatinine (0.6-1.4) mg/dl Est Cr Clr Drug Dosing ml/min Est GFR ( Amer) ml/min Est GFR (Non-Af Amer) ml/min BUN/Creatinine Ratio (10-20) Glucose (70-99) mg/dl POC Glucose 159 H 184 H 238 H (70-99) mg/dl Calcium (8.5-10.1) mg/dl Magnesium (1.8-2.4) mg/dl 04/20/21 Range/Units 10:51 WBC (4.8-10.8) K/uL RBC (4.7-6.1) M/uL Hgb (14.0-18.0) g/dL Hct (42-52) % MCV (80-100) fL MCH (25-34) pg MCHC (32-36) g/dL RDW Std Deviation (36.4-46.3) fL RDW Coeff of Miracle (11.5-14.5) % Plt Count (130-400) K/uL MPV (7.4-10.4) fL Immature Gran % (Auto) % Neut % (Auto) % Lymph % (Auto) % [place] % (Auto) % Eos % (Auto) % Baso % (Auto) % Neut # (Auto) (1.4-6.5) K/uL Lymph # (Auto) (1.2-3.4) K/uL [place] # (Auto) (0.11-0.59) K/uL Eos # (Auto) (0-0.5) K/uL Baso # (Auto) (0-0.2) K/uL Immature Gran # (Auto) (0.00-0.02) K/uL Sodium 133 L (136-145) mmol/L Potassium 4.2 D (3.5-5.1) mmol/L Chloride 101 (98-107) mmol/L Carbon Dioxide 28 (21-32) mmol/L Anion Gap 5.0 (3-11) BUN 13 (7-18) mg/dl Creatinine 1.05 (0.6-1.4) mg/dl Est Cr Clr Drug Dosing 92.3 ml/min Est GFR ( Amer) 92.8 ml/min Est GFR (Non-Af Amer) 80.1 ml/min BUN/Creatinine Ratio 12.5 (10-20) Glucose 239 H (70-99) mg/dl POC Glucose (70-99) mg/dl Calcium 8.1 L (8.5-10.1) mg/dl Magnesium 2.5 H (1.8-2.4) mg/dl PG Care Time/CCT Total # of Minutes Spent Total Time Spent with Patient: Total time spent is greater than 50% in coordination of care (as documented) at patient's floor/unit and/or counseling patient: Coding Level of Care Code 97162 Subseq Hosp Care Lvl 3 Diagnoses COVID-19 U07.1 Type 2 diabetes mellitus with insulin therapy E11.9; Z79.4 Dyslipidemia E78.5 Vitamin D deficiency E55.9 Hyponatremia E87.1
[2021-04-21] MEDS: ALBUTEROL HFA 8 GM INHALER INH SCH ×3 (11:12→20:04)
[2021-04-21] MEDS: guaiFENesin/DEXTROM SYRUP 200MG/20MG 10ML UDC PO PRN ×2 (11:50→21:37)
[2021-04-21] MEDS ORDERED: MELATONIN 3 MG TAB PO PRN (20:48)
[2021-04-22] MEDS: ALBUTEROL HFA 8 GM INHALER INH SCH ×2 (00:55→07:59)
[2021-04-22] MEDS: guaiFENesin/DEXTROM SYRUP 200MG/20MG 10ML UDC PO PRN (04:49)
[2021-04-22] MEDS: ENOXAPARIN INJ 40 MG/0.4 ML SYR SQ SCH ×2 (05:53→17:52)
[2021-04-22] MEDS: BENZONATATE 100 MG CAPSULE PO SCH ×3 (08:30→21:02)
[2021-04-22] MEDS: dexAMETHasone 6 MG in SYRINGE 0 ML IV SCH (08:30)
[2021-04-22] MEDS: CHOLECALCIFEROL 1,000 UNITS 25 MCG TAB PO SCH (08:31)
[2021-04-22] MEDS: INSULIN GLARGINE SOLOSTAR 100 UNITS/ML 3 ML PEN SC SCH ×2 (08:57→21:55)
[2021-04-22] MEDS: INSULIN ASPART 100 UNITS/ML 3 ML PEN SC SCH ×4 (08:57→21:54)
--- NOTE | 2021-04-22 09:46 | Hospitalist Progress Note ---
Date of Service April 22, 2021 Assessment & Plan (1) COVID-19: Plan: 55yo C male with history of DM, obesity with BMI of 28.7 presenting with Covid- 19 infection, acute respiratory failure with hypoxia, as well as hyponatremia and dehydration. Patient is on day 11 of illness at time of admission. He has been using Albuterol and Advair at home. He received a MAB infusion outpatient at [facility] on 04/18. He is unvaccinated. Hypoxic to 89% on arrival. Labs with leukopenia and lymphopenia, thrombocytopenia, hyponatremia, hypokalemia as well as mildly elevated AST and CRP of 5.51. BNP and procalcitonin within normal range remains stable on 2-3 L NC today, no distress, has THAYER sleeping and laying prone, encouraged him to continue this + cough, will try Codeine dexamethasone 6mg IV daily x 10 days total -asked RN to bring in IS and will add on flutter valve -Lovenox 40 BID for DVT proph anticipate discharge in a few days, get down to room air check BMP, Mg, CRP, CBC tomorrow (2) Type 2 diabetes mellitus with insulin therapy: Plan: Well controlled as outpt. Last Hgb A1C = 6.5 on 01/02/21. Patient on Metformin and Insulin Degludec as outpatient. He follows with Endocrinology - last seen in September 2020. With hyperglycemia on admission from steroids, now improved with increased doses of insulin -Hold Metformin -continue higher dose of Lantus 15u BID and Novolog monitor for hypoglycemia, no episodes (3) Dyslipidemia: Plan: Chronic -Not on statin currently -Will hold fish oil (4) Vitamin D deficiency: Plan: Chronic -Continue Vitamin D supplementation (5) Hyponatremia: Plan: [id number] on admission. Was dehydrated and having GI issues, poor po intake prior to arrival Now improved after 1 L nS on admission and po intake improving Na+ now 135 on 04/21 check BMP tomorrow examines euvolemic Plan: Ppx - Lovenox 40mg BID with active Covid-19 infection, increased risk for thrombosis Code - Full Dispo - continued stay on medical with telemetry Admission and Anticipated Discharge Date Admission Date: April 20, 2021 Subjective patient says he had a really good night last night, able to sleep prone, feels more rested this morning says that the cough is bothering him, especially when prone, will try Codeine he is eating okay, says the food is really dense, wishes he could get something more fresh like a salad no nausea, no diarrhea, no fever no labs today, reviewed chart and prior labs, Na was up to 135 and Cr was 1.0 yesterday discussed that getting down to room air is ticket out of here, take it one day at a time Review of Systems Review of Systems: All systems reviewed & are unremarkable except as noted in Subjective Constitutional: + fatigue and + weakness; no fever Respiratory: + cough and + dyspnea on exertion; no dyspnea and no sputum production Cardiovascular: no chest pain Gastrointestinal: no abdominal pain, no nausea, no vomiting, no constipation and no diarrhea/loose stools Physical Exam Constitutional: well developed, well nourished and + ill appearing; no acute distress Neck: trachea midline, no thyromegaly Respiratory: normal respiratory effort and + cough; no respiratory distress, no labored breathing and not tachypneic Auscultation: lungs clear to auscultation bilaterally; no crackles Cardiovascular: RRR, no murmur, no edema Gastrointestinal (Abdomen): normal bowel sounds, soft, nontender, no hepatos plenomegaly Musculoskeletal: no cyanosis or clubbing, extremities motor strength 5/5 Skin: no rashes, warm and dry Neurologic: normal touch/pain/proprioception, CN's II-XI intact bilaterally, moves all extremities and awake; no focal motor deficits Psychiatric: A+Ox3, euthymic affect Results & Data Results & Data ([facility]) Vital Signs (Past 12 Hours) Vital Signs Temp Pulse Pulse Resp BP BP Pulse Ox 04/22/21 08:01 36.6 C 97 H 20 143/93 H 93 04/22/21 07:59 98 H 18 94 04/22/21 04:18 37.0 C 77 20 143/87 H 97 04/22/21 00:56 78 18 96 04/21/21 22:59 90 04/21/21 22:52 37.2 C 84 22 134/79 96 Laboratory Results Laboratory Results - last 24 hr 04/21/21 04/21/21 04/21/21 11:26 16:35 21:07 POC Glucose 189 H 188 H 196 H 04/22/21 08:00 POC Glucose 115 H Medications Administered Current Inpatient Medications Acetaminophen (Acetaminophen 325 Mg Tab) 650 mg PO Q4H PRN PRN Reason: Pain or Fever Stop: 05/20/21 03:56 Albuterol (Albuterol Hfa 8 Gm Inhaler) 2 puffs INH Q6R [facility] Stop: 05/21/21 10:44 Last Admin: 04/22/21 07:59 Dose: 2 puffs Documented by: Benzonatate (Benzonatate 100 Mg Capsule) 100 mg PO TID PATRICIA Stop: 05/20/21 08:59 Last Admin: 04/22/21 08:30 Dose: 100 mg Documented by: Dextrose (Dextrose 50% 50 Ml Syringe) 25 - 50 ml IV UD PRN; Protocol PRN Reason: Hypoglycemia Protocol Stop: 05/20/21 03:56 Enoxaparin Sodium (Enoxaparin Inj 40 Mg/0.4 Ml Syr) 40 mg SQ Q12H PATRICIA Stop: 05/20/21 05:59 Last Admin: 04/22/21 05:53 Dose: 40 mg Documented by: Glucagon (Glucagon For Inj 1 Mg Vial) 1 mg SQ UD PRN; Protocol PRN Reason: Hypoglycemia Protocol Stop: 05/20/21 03:56 Glucose (Glucose 10 Tabs/Tube) 4 - 8 tabs PO UD PRN; Protocol PRN Reason: Hypoglycemia Protocol Stop: 05/20/21 03:56 Glucose (Glucose 40% Gel 15 Gm Tube) 15 - 30 gm PO UD PRN; Protocol PRN Reason: Hypoglycemia Protocol Stop: 05/20/21 03:56 Guaifenesin/Dextromethorphan (Guaifenesin/Dextrom Syrup 200mg/20mg 10ml Udc) 10 ml PO Q6H PRN PRN Reason: Cough Stop: 05/21/21 10:42 Last Admin: 04/22/21 04:49 Dose: 10 ml Documented by: Dexamethasone 6 mg/ Syringe 1.5 mls @ 1 mls/min IV Q24H [facility] Stop: 05/20/21 08:59 Last Admin: 04/22/21 08:30 Dose: 1 mls/min Documented by: Insulin Aspart (Insulin Aspart 100 Units/Ml 3 Ml Pen) 0 units SC ACHS [facility] Stop: 05/20/21 07:29 Last Admin: 04/22/21 08:57 Dose: 5 units Documented by: Insulin Glargine (Insulin Glargine Solostar 100 Units/Ml 3 Ml Pen) 15 units SC BID PATRICIA Stop: 05/20/21 20:59 Last Admin: 04/22/21 08:57 Dose: 15 units Documented by: Melatonin (Melatonin 3 Mg Tab) 3 mg PO HS PRN PRN Reason: Sleep Stop: 05/21/21 20:47 Last Admin: 04/21/21 21:37 Dose: 3 mg Documented by: Miscellaneous (Carbohydrates For Hypoglycemia ) 15 - 30 gm PO UD PRN PRN Reason: Hypoglycemia Protocol Stop: 05/20/21 03:56 Ondansetron HCl (Ondansetron Inj 2 Mg/Ml 2 Ml Vial) 4 mg IV Q6H PRN PRN Reason: Nausea Stop: 05/20/21 03:56 Vitamin D (Cholecalciferol 1,000 Units 25 Mcg Tab) 2,000 units PO DAILY PATRICIA Stop: 05/20/21 08:59 Last Admin: 04/22/21 08:31 Dose: 2,000 units Documented by: PG Care Time/CCT Total # of Minutes Spent Total Time Spent with Patient: Total time spent is greater than 50% in coordination of care (as documented) at patient's floor/unit and/or counseling patient: Coding Level of Care Code 10370 Subseq Hosp Care Lvl 3 Diagnoses COVID-19 U07.1 Type 2 diabetes mellitus with insulin therapy E11.9; Z79.4 Dyslipidemia E78.5 Vitamin D deficiency E55.9 Hyponatremia E87.1
[2021-04-22 14:06] LABS: iSTAT Potassium 3.3 mmol/L (3.3-5.0); iSTAT Sodium 130 mmol/L (135-144)
[2021-04-22 14:07] LABS: iSTAT Arterial Blood Gas HCO3 24 meg/L (19-24); iSTAT Arterial Blood Gas pCO2 37 mmHg (35-46); iSTAT Arterial Blood Gas pH 7.43 (7.35-7.45); iSTAT Arterial Blood Gas pO2 89 mmHg (80-95); iSTAT Carbon Dioxide 25 mmol/L (24-31); iSTAT Hematocrit 38 % (42-52); iSTAT Hemoglobin 12.9 g/dl (14.0-18.0)
[2021-04-23] MEDS ORDERED: CALCIUM CARBONATE 500 MG CHEWABLE TAB PO PRN (04:46)
[2021-04-23] MEDS: ENOXAPARIN INJ 40 MG/0.4 ML SYR SQ SCH ×2 (05:12→17:45)
[2021-04-23 06:47] LABS: Hematocrit (blood only) 41.6 % (42-52); Hemoglobin 14.3 g/dL (14.0-18.0); Mean Corpuscular Hemoglobin 29.2 pg (25-34); Mean Corpuscular Hgb Conc 34.4 g/dL (32-36); Mean Corpuscular Volume 84.9 fL (80-100); Mean Platelet Volume 9.4 fL (7.4-10.4); Platelet Count 251 K/uL (130-400); RDW Coefficient of Variation 13.1 % (11.5-14.5); RDW Standard Deviation 40.6 fL (36.4-46.3); White Blood Count 4.82 K/uL (4.8-10.8)
[2021-04-23 07:14] LABS: BUN Creatinine Ratio 19.5 (10-20); C Reactive Protein 0.66 mg/dl (0-0.29); Calcium 8.6 mg/dl (8.5-10.1); Creatinine Clr Calc Pharmacy 107.6 ml/min; Est GFR (African American) 112.3 ml/min; Est GFR (Non-African American) 96.9 ml/min; Magnesium 2.6 mg/dl (1.8-2.4); Potassium 3.7 mmol/L (3.5-5.1)
[2021-04-23] MEDS ORDERED: FUROSEMIDE 40 MG/4 ML VIAL IV ONE (08:45)
[2021-04-23] MEDS ORDERED: POTASSIUM CHLORIDE CRTAB 20 MEQ TABCR PO SCH (08:45)
[2021-04-23] MEDS ORDERED: FUROSEMIDE 20 MG in SYRINGE 0 ML IV ONE (08:45)
[2021-04-23] MEDS: BENZONATATE 100 MG CAPSULE PO SCH ×3 (08:52→19:53)
[2021-04-23] MEDS: CHOLECALCIFEROL 1,000 UNITS 25 MCG TAB PO SCH (08:53)
[2021-04-23] MEDS: dexAMETHasone 6 MG in SYRINGE 0 ML IV SCH (08:53)
[2021-04-23] MEDS: INSULIN GLARGINE SOLOSTAR 100 UNITS/ML 3 ML PEN SC SCH ×2 (08:54→19:55)
[2021-04-23] MEDS: INSULIN ASPART 100 UNITS/ML 3 ML PEN SC SCH ×4 (08:56→19:55)
--- NOTE | 2021-04-23 09:28 | Hospitalist Progress Note ---
Date of Service April 23, 2021 Assessment & Plan (1) COVID-19: Plan: 55yo C male with history of DM, obesity with BMI of 28.7 presenting with Covid- 19 infection, acute respiratory failure with hypoxia, as well as hyponatremia and dehydration. Patient is on day 11 of illness at time of admission. He has been using Albuterol and Advair at home. He received a MAB infusion outpatient at [facility] on 04/18. He is unvaccinated. Hypoxic to 89% on arrival. Labs with leukopenia and lymphopenia, thrombocytopenia, hyponatremia, hypokalemia as well as mildly elevated AST and CRP of 5.51. BNP and procalcitonin within normal range down to room air at rest currently, at 90-92%, no distress give Lasix again today, responded well yesterday prone position periodically cough is better with Codeine dexamethasone 6mg IV daily x 10 days total, change to PO on discharge -Lovenox 40 BID for DVT proph anticipate discharge tomorrow, plan for two step tomorrow morning (2) Type 2 diabetes mellitus with insulin therapy: Plan: Well controlled as outpt. Last Hgb A1C = 6.5 on 01/02/21. Patient on Metformin and Insulin Degludec as outpatient. He follows with Endocrinology - last seen in September 2020. With hyperglycemia on admission from steroids, now improved with increased doses of insulin -Hold Metformin -continue higher dose of Lantus 15u BID and Novolog monitor for hypoglycemia, no episodes will give some insulin on discharge only while on dexamethasone (3) Dyslipidemia: Plan: Chronic -Not on statin currently -Will hold fish oil (4) Vitamin D deficiency: Plan: Chronic -Continue Vitamin D supplementation (5) Hyponatremia: Plan: [id number] on admission. Was dehydrated and having GI issues, poor po intake prior to arrival Na is 135 today (6) Epigastric abdominal pain: Plan: suspect indigestion, try Tums, Protonix and Simethicone Plan: Ppx - Lovenox 40mg BID with active Covid-19 infection, increased risk for thrombosis Code - Full Dispo - two step tomorrow, home tomorrow Admission and Anticipated Discharge Date Admission Date: April 20, 2021 Subjective patient c/o abdominal pain, hurts when he eats, feels like he has a "gas bubble" in his epigastric area says that there is also a vague pain when he swallows, could be thrush? breathing is improved, responded well to Lasix, will give another dose today removed oxygen while I was in the room, stable at 90-92%, will try to keep it off all day, try to get home tomorrow, he is excited about that possibility no diarrhea, no fever reviewed labs, Cr and K stable after Lasix updated RN about the plan Review of Systems Review of Systems: All systems reviewed & are unremarkable except as noted in Subjective Physical Exam Constitutional: well developed, well nourished and + ill appearing; no acute distress Neck: trachea midline, no thyromegaly Respiratory: normal respiratory effort and + cough; no respiratory distress, no labored breathing and not tachypneic Auscultation: lungs clear to auscultation bilaterally; no crackles Cardiovascular: RRR, no murmur, no edema Gastrointestinal (Abdomen): normal bowel sounds, soft, nontender, no hepatosplenomegaly Musculoskeletal: no cyanosis or clubbing, extremities motor strength 5/5 Skin: no rashes, warm and dry Neurologic: normal touch/pain/proprioception, CN's II-XI intact bilaterally, moves all extremities and awake; no focal motor deficits Psychiatric: A+Ox3, euthymic affect Results & Data Results & Data ([facility]) Vital Signs (Past 12 Hours) Vital Signs Temp Pulse Resp BP Pulse Ox 04/23/21 07:44 36.8 C 77 18 142/84 H 95 04/23/21 03:47 37.1 C 75 17 135/84 97 04/23/21 02:45 92 04/22/21 23:56 93 04/22/21 23:29 36.7 C 69 16 138/81 96 04/22/21 21:57 96 Laboratory Results Laboratory Results - last 24 hr 04/20/21 04/22/21 04/22/21 02:14 11:32 16:29 WBC RBC Hgb POC Hgb 12.9 L Hct POC Hct 38 L MCV MCH MCHC RDW Std Deviation RDW Coeff of Miracle Plt Count MPV POC pH 7.43 POC pCO2 37 POC pO2 89 POC HCO3 24 POC Total CO2 25 POC Base Excess 0.0 POC Sodium 130 L Sodium POC Potassium 3.3 Potassium Chloride Carbon Dioxide Anion Gap BUN Creatinine Est Cr Clr Drug Dosing Est GFR ( Amer) Est GFR (Non-Af Amer) BUN/Creatinine Ratio Glucose POC Glucose 183 H 135 H Calcium Magnesium C-Reactive Protein 04/22/21 04/23/21 04/23/21 20:42 06:04 06:04 WBC 4.82 RBC 4.90 Hgb 14.3 POC Hgb Hct 41.6 L POC Hct MCV 84.9 MCH 29.2 MCHC 34.4 RDW Std Deviation 40.6 RDW Coeff of Miracle 13.1 Plt Count 251 MPV 9.4 POC pH POC pCO2 POC pO2 POC HCO3 POC Total CO2 POC Base Excess POC Sodium Sodium 135 L POC Potassium Potassium 3.7 Chloride 103 Carbon Dioxide 28 Anion Gap 4.0 BUN 17 Creatinine 0.89 Est Cr Clr Drug Dosing 107.6 Est GFR ( Amer) 112.3 Est GFR (Non-Af Amer) 96.9 BUN/Creatinine Ratio 19.5 Glucose 99 POC Glucose 140 H Calcium 8.6 Magnesium 2.6 H C-Reactive Protein 0.66 H 04/23/21 08:01 WBC RBC Hgb POC Hgb Hct POC Hct MCV MCH MCHC RDW Std Deviation RDW Coeff of Miracle Plt Count MPV POC pH POC pCO2 POC pO2 POC HCO3 POC Total CO2 POC Base Excess POC Sodium Sodium POC Potassium Potassium Chloride Carbon Dioxide Anion Gap BUN Creatinine Est Cr Clr Drug Dosing Est GFR ( Amer) Est GFR (Non-Af Amer) BUN/Creatinine Ratio Glucose POC Glucose 101 H Calcium Magnesium C-Reactive Protein Medications Administered Current Inpatient Medications Acetaminophen (Acetaminophen 325 Mg Tab) 650 mg PO Q4H PRN PRN Reason: Pain or Fever Stop: 05/20/21 03:56 Benzonatate (Benzonatate 100 Mg Capsule) 100 mg PO TID [facility] Stop: 05/20/21 08:59 Last Admin: 04/23/21 08:52 Dose: 100 mg Documented by: Calcium Carbonate (Calcium Carbonate 500 Mg Chewable Tab) 500 mg PO Q6H PRN PRN Reason: Indigestion Stop: 05/23/21 04:45 Last Admin: 04/23/21 05:11 Dose: 500 mg Documented by: Dextrose (Dextrose 50% 50 Ml Syringe) 25 - 50 ml IV UD PRN; Protocol PRN Reason: Hypoglycemia Protocol Stop: 05/20/21 03:56 Enoxaparin Sodium (Enoxaparin Inj 40 Mg/0.4 Ml Syr) 40 mg SQ Q12H PATRICIA Stop: 05/20/21 05:59 Last Admin: 04/23/21 05:12 Dose: 40 mg Documented by: Glucagon (Glucagon For Inj 1 Mg Vial) 1 mg SQ UD PRN; Protocol PRN Reason: Hypoglycemia Protocol Stop: 05/20/21 03:56 Glucose (Glucose 10 Tabs/Tube) 4 - 8 tabs PO UD PRN; Protocol PRN Reason: Hypoglycemia Protocol Stop: 05/20/21 03:56 Glucose (Glucose 40% Gel 15 Gm Tube) 15 - 30 gm PO UD PRN; Protocol PRN Reason: Hypoglycemia Protocol Stop: 05/20/21 03:56 Guaifenesin/Codeine Phosphate (Guaifenesin/Codeine 200mg/20mg 10ml Udc) 10 ml PO Q6H PRN PRN Reason: Cough Stop: 05/22/21 11:07 Last Admin: 04/23/21 06:36 Dose: 10 ml Documented by: Dexamethasone 6 mg/ Syringe 1.5 mls @ 1 mls/min IV Q24H PATRICIA Stop: 05/20/21 08:59 Last Admin: 04/23/21 08:53 Dose: 1 mls/min Documented by: Insulin Aspart (Insulin Aspart 100 Units/Ml 3 Ml Pen) 0 units SC ACHS PATRICIA Stop: 05/20/21 07:29 Last Admin: 04/23/21 08:56 Dose: 3 units Documented by: Insulin Glargine (Insulin Glargine Solostar 100 Units/Ml 3 Ml Pen) 15 units SC BID PATRICIA Stop: 05/20/21 20:59 Last Admin: 04/23/21 08:54 Dose: 15 units Documented by: Melatonin (Melatonin 3 Mg Tab) 3 mg PO HS PRN PRN Reason: Sleep Stop: 05/21/21 20:47 Last Admin: 04/21/21 21:37 Dose: 3 mg Documented by: Miscellaneous (Carbohydrates For Hypoglycemia ) 15 - 30 gm PO UD PRN PRN Reason: Hypoglycemia Protocol Stop: 05/20/21 03:56 Ondansetron HCl (Ondansetron Inj 2 Mg/Ml 2 Ml Vial) 4 mg IV Q6H PRN PRN Reason: Nausea Stop: 05/20/21 03:56 Pantoprazole Sodium (Pantoprazole 40 Mg Tab) 40 mg PO QAM PATRICIA Stop: 05/23/21 09:29 Potassium Chloride (Potassium Chloride Crtab 20 Meq Tabcr) 20 meq PO 0845 PATRICIA Stop: 04/23/21 10:45 Last Admin: 04/23/21 08:52 Dose: 20 meq Documented by: Vitamin D (Cholecalciferol 1,000 Units 25 Mcg Tab) 2,000 units PO DAILY PATRICIA Stop: 05/20/21 08:59 Last Admin: 04/23/21 08:53 Dose: 2,000 units Documented by: PG Care Time/CCT Total # of Minutes Spent Total Time Spent with Patient: Total time spent is greater than 50% in coordination of care (as documented) at patient's floor/unit and/or counseling patient: Coding Level of Care Code 89449 Subseq Hosp Care Lvl 3 Diagnoses COVID-19 U07.1 Type 2 diabetes mellitus with insulin therapy E11.9; Z79.4 Dyslipidemia E78.5 Vitamin D deficiency E55.9 Hyponatremia E87.1 Epigastric abdominal pain R10.13
[2021-04-23] MEDS ORDERED: SIMETHICONE 40 MG/0.6 ML 30ML PO ONE (09:38)
[2021-04-23] MEDS ORDERED: SIMETHICONE 80 MG CHEW PO ONE (09:45)
[2021-04-23] MEDS: PANTOprazole 40 MG TAB PO SCH (10:38)
[2021-04-23] MEDS ORDERED: SIMETHICONE 80 MG CHEW PO PRN (15:00)
[2021-04-24] MEDS: ENOXAPARIN INJ 40 MG/0.4 ML SYR SQ SCH ×2 (05:29→17:41)
[2021-04-24] MEDS: INSULIN ASPART 100 UNITS/ML 3 ML PEN SC SCH ×3 (08:28→17:41)
[2021-04-24] MEDS: CHOLECALCIFEROL 1,000 UNITS 25 MCG TAB PO SCH (08:55)
[2021-04-24] MEDS: dexAMETHasone 6 MG in SYRINGE 0 ML IV SCH (08:55)
[2021-04-24] MEDS: PANTOprazole 40 MG TAB PO SCH (08:55)
[2021-04-24] MEDS: BENZONATATE 100 MG CAPSULE PO SCH ×2 (08:55→12:57)
[2021-04-24] MEDS: INSULIN GLARGINE SOLOSTAR 100 UNITS/ML 3 ML PEN SC SCH (08:56)
[2021-04-24] MEDS ORDERED: OPTIRAY 320 125ml IV ONE (10:43)
[2021-04-24] MEDS ORDERED: SODIUM CHLORIDE 0.9% 1000ML 1,000 ML IV SCH (11:00)
--- NOTE | 2021-04-24 11:03 | CT Scan Report ---
CT ANGIOGRAPHY OF THE CHEST, PULMONARY EMBOLUS PROTOCOL CLINICAL HISTORY: Shortness of breath. Evaluate for pulmonary embolus. COMPARISON STUDY: Chest radiograph April 20, 2021. TECHNIQUE: Following IV administration of 119 mL of Optiray, helical axial images of the chest were o btained utilizing the pulmonary embolus protocol. Maximal intensity projections and sagittal and cor onal reformats were viewed on an independent 3D workstation. IV contrast was administered without co mplication. Automated exposure control was utilized for the study. A dose lowering technique was ut ilized adhering to the principles of ALARA. CT DOSE: 480.66 mGycm FINDINGS: No pulmonary emboli are identified. There is no thoracic aortic dissection. No enlarged th oracic lymph nodes are present. Size of the heart is normal. There is no pericardial effusion. There is mild elevation of the right hemidiaphragm. No pneumothorax or pleural effusion is noted. Moderate to extensive multifocal groundglass opacities within the lungs are similar to prior chest radiograph. There is mild right lower lobe consolidation. Central airways are patent. Visualized portions of the upper abdomen are unremarkable. IMPRESSION: 1. No pulmonary emboli identified. 2. No significant change in multifocal airspace opacities consistent with viral pneumonia. ACT 112: Negative or not required by law. Electronically signed by: oNel Holloway M.D. 04/24/2021 11:02 AM
--- NOTE | 2021-04-24 11:03 | Discharge Summary ---
Date of Service April 24, 2021 Admission HPI Per Admitting Provider Chris Bustillo is a 55yo male with history of DM presenting with Covid-19 PNA. Patient developed symptoms 11 days ago - fevers/chills/body aches/loss of taste and smell. He had a home test that was positive. He was evaluated by his PCP and given Albuterol HFA, Advair as well as cough syrup. Patient has been monitoring his oxygen saturation at home and it has been appx 88-94%. Today, however, he was in mid-80's. He also felt more short of breath like his "lungs seized up". Also with persistent coughing, poor sleep. Additionally he is complaining of severe fatigue and malaise as well as some lower abdominal discomfort associated only with coughing. Patient denies chest pain, palpitations, generalized abdominal pain, nausea, vomiting, diarrhea or constipation. No additional complaints at this time. Upon arrival to the ER patient febrile, tachycardic, saturating 89% on room air. He was placed on 3L by nasal cannula with improvement in saturation to 95%. ABG performed on 2L IN 7.45/36.7/89 Principal Diagnosis COVID 19 pneumonia with hypoxic respiratory failure Discharge Exam Constitutional well developed, well nourished and comfortable; no acute distress Neck trachea midline, no thyromegaly Respiratory normal respiratory effort and + cough; no respiratory distress, no labored breathing and not tachypneic Auscultation: lungs clear to auscultation bilaterally; no crackles Cardiovascular RRR, no murmur, no edema Gastrointestinal (Abdomen) normal bowel sounds, soft, nontender, no hepatosplenomegaly Musculoskeletal no cyanosis or clubbing, extremities motor strength 5/5 Skin no rashes, warm and dry Neurologic normal touch/pain/proprioception, CN's II-XI intact bilaterally, moves all extremities and awake; no focal motor deficits Psychiatric A+Ox3, euthymic affect Discharge Data Allergies Allergy/AdvReac Type Severity Reaction Status Date / Time No Known Allergies Allergy Verified 04/20/21 00:58 Consultations 04/20/21 01:46 ED Decision to Admit Stat Ordered Studies 04/24/21 10:16 CT angio chest PE protocol Urgent Hospital Course (1) COVID-19: 55yo C male with history of DM, obesity with BMI of 28.7 presenting with Covid-19 infection, acute respiratory failure with hypoxia, as well as hyponatremia and dehydration. Patient is on day 11 of illness at time of admission. He has been using Albuterol and Advair at home. He received a MAB infusion outpatient at [facility] on 04/18. He is unvaccinated. Hypoxic to 89% on arrival. Labs with leukopenia and lymphopenia, thrombocytopenia, hyponatremia, hypokalemia as well as mildly elevated AST and CRP of 5.51. BNP and procalcitonin within normal range down to room air at rest most of the day prior to discharge on 2 step he needed 2L at rest for saturation 88% but he only needed 2L on exertion as well great response to Lasix and proning, encourage him to lay prone at home as well cough is better with Codeine, will prescribe on discharge dexamethasone 6mg IV daily x 10 days total, change to PO on discharge to complete 5 more days -Lovenox 40 BID for DVT proph while admitted discharge to home, updated his about the plan over the phone (2) Type 2 diabetes mellitus with insulin therapy: Well controlled as outpt. Last Hgb A1C = 6.5 on 01/02/21. Patient on Metformin and Insulin Degludec as outpatient. He follows with Endocrinology - last seen in September 2020. With hyperglycemia on admission from steroids, now improved with increased doses of insulin -resume Metformin -follow low carb diet oral dexamethasone should have less of a hyperglycemic effect (3) Dyslipidemia: Chronic -Not on statin currently -Will resume fish oil (4) Vitamin D deficiency: Chronic -Continue Vitamin D supplementation (5) Hyponatremia: Fv=[id number] on admission. Was dehydrated and having GI issues, poor po intake prior to arrival Na is 135 when last checked (6) Epigastric abdominal pain: suspect indigestion, try Tums, Protonix and Simethicone discharge to home Total Time Total Time Spent Total Time Spent (In Minutes): 33 minutes Total Time Includes: Examination of the Patient, Discharge Planning, Medication Reconciliation and Other (spoke with his over the phone) Discharge Plan Discharge Items Patient Disposition: Home - Self-Care Reason For Visit: COVID-19 PNA, HYPOXIA Discharge Diagnosis: COVID 19 pneumonia Acute hypoxic respiratory failure Condition on Discharge: Good Goals: stay well nourished, well hydrated, well rested increase activity as tolerated wean off oxygen as tolerated Activity: Resume your previous activity Activity Comment: no need for isolation, symptoms for more than 10 days Driving/Machine Use: Resume 3 days after discharge Weightbearing: Full weightbearing Non-emergency contact: Primary Care Provider Call non-emergency contact if: you have any medication questions and your symptoms worsen Follow-up/Referrals: Desean Kenny [Physician] - (schedule with Florinda YOUNGER please, one week) Diet: Regular Addtl Attending Provider Instructions: Medications: - DEXAMETHASONE: 6mg daily for 5 more days to complete 10 days of treatment - TESSALON and CODEINE: take the Tessalon three times a day for 7 days, use the Codeine 5-10mL as needed every 6 hours for cough OXYGEN: you needed 2L at rest and 2L on exertion, oxygen saturation goal is > 89%, you can try to wean yourself off the oxygen at rest as long as saturations are > 89% suspect you will need oxygen on exertion for the next 1-2 weeks, discuss with Florinda Torres on follow up, can do a walking oxygen study in the office if needed COVID 19 pneumonia, acute hypoxic respiratory failure responding well to dexamethasone 6mg daily, complete 5 more days use cough suppressants as needed stay well nourished, well hydrated, get rest but also increase activity each day as tolerated no need to isolate as you are beyond 10 days of illness Pending Studies at Discharge: No Stand-Alone Forms: My [facility] [place], Work/School Release, Smoking Cessation Medications and DC Order Prescriptions: New codeine-guaifenesin 10-100 mg/5 mL Liquid 5 - 10 ml PO Q6H PRN (Reason: cough) Qty: 240 RF: 0 Continued (DME) OneTouch Ultra Blue Test Strip Strip See Dose Instructions .ROUTE .MEDSUPPLY Qty: 300 RF: 3 (DME) FreeStyle Zan 14 Day [place] Misc See Rx Instructions .ROUTE .MEDSUPPLY Qty: 1 RF: 0 (DME) FreeStyle Zan 14 Day Sensor Kit See Rx Instructions .ROUTE .MEDSUPPLY Qty: 6 RF: 3 (DME) lancets [OneTouch Delica Lancets] 33 gauge misc See Dose Instructions .ROUTE .MEDSUPPLY Qty: 300 RF: 3 Tresiba FlexTouch U-200 200 unit/mL (3 mL) insulin pen 26 unit subcut DAILY 90 Days Qty: 18 RF: 3 metformin 500 mg tablet extended release 24 hr 1,500 mg PO DAILY Qty: 270 RF: 3 (DME) pen needle, diabetic [BD Ultra-Fine [place] Pen Needle] 32 gauge x 5/32" needle See Dose Instructions .ROUTE .MEDSUPPLY Qty: 100 RF: 3 omega-3 acid ethyl esters 1 gram capsule 1 cap PO DAILY RF: 0 multivitamin tablet 1 tab PO DAILY RF: 0 cyanocobalamin (vitamin B-12) 500 mcg tablet 500 mcg PO DAILY RF: 0 ascorbic acid (vitamin C) 250 mg tablet 250 mg PO DAILY RF: 0 cholecalciferol (vitamin D3) 2,000 unit tablet 2,000 units PO DAILY RF: 0 fluticasone propion-salmeterol [Advair Diskus] 100-50 mcg/dose blister with device 1 ea INHALATION BID RF: 0 acetaminophen-codeine 300-30 mg tablet 1 tab PO Q6 PRN (Reason: Cough) RF: 0 albuterol sulfate 90 mcg/actuation HFA aerosol inhaler 2 puff INHALATION Q6 RF: 0 Discontinued promethazine-codeine 6.25-10 mg/5 mL syrup 0 ml PO UD RF: 0 Discharge Orders: Discharge Order (Routine); Ordered 04/24/21 Ordered By: Sudheer Mcconnell Admission Data Admit Date/Time: 04/20/21 02:43 Attending Provider: Sudheer Mcconnell Admit Provider: Melody Winston Primary Care Provider: Anyi Quevedo Other Interventions: Discharge Summary Assessment (RN) Last Done: 04/24/21 18:22 Coding Level of Care Code D/C DAY MANAGEMENT >30 MINS Diagnoses COVID-19 U07.1 Type 2 diabetes mellitus with insulin therapy E11.9; Z79.4 Dyslipidemia E78.5 Vitamin D deficiency E55.9 Hyponatremia E87.1 Epigastric abdominal pain R10.13
== END 2021-04-24 18:49 | disposition home or self-care (01) | DRG 177 ==
LOC: ED 00:33 → SUATTDRO 02:43 → 2S 02:43